=== PATIENT | male | born 1995 | race Caucasian/White ===

== ENCOUNTER 2017-02-11 15:43 | Emergency (ER) | payer OTHER, SELFPAY ==
[2017-02-11] MEDS ORDERED: Ibuprofen 800 MG TAB ONE (16:22)
== END 2017-02-11 16:32 | disposition home or self-care (01) ==
LOC: ERS 15:43
DX: S39.012A Strain of muscle, fascia and tendon of lower back, initial encounter (principal); S29.012A Strain of muscle and tendon of back wall of thorax, initial encounter; F41.9 Anxiety disorder, unspecified; F31.9 Bipolar disorder, unspecified; F43.10 Post-traumatic stress disorder, unspecified; F17.220 Nicotine dependence, chewing tobacco, uncomplicated; V43.52XA Car driver injured in collision with other type car in traffic accident, initial encounter
CPT/HCPCS: 99283

== ENCOUNTER 2017-03-10 19:45 | Emergency (ER) | payer SELFPAY ==
--- NOTE | 2017-03-10 20:16 | RAD ---
RIGHT SHOULDER THREE VIEW 03/10/17 HISTORY: Pain. COMPARISON: None. FINDINGS: No acute fracture. No malalignment. Ribs are unremarkable. IMPRESSION: No acute abnormality. POS: [facility]
== END 2017-03-10 21:35 | disposition home or self-care (01) ==
LOC: ERS 19:45
DX: S46.011A Strain of muscle(s) and tendon(s) of the rotator cuff of right shoulder, initial encounter (principal); F41.9 Anxiety disorder, unspecified; F32.9 Major depressive disorder, single episode, unspecified; F43.10 Post-traumatic stress disorder, unspecified; F17.220 Nicotine dependence, chewing tobacco, uncomplicated; X58.XXXA Exposure to other specified factors, initial encounter

== ENCOUNTER 2019-05-21 20:24 | Emergency (ER) | payer OTHER ==
[2019-05-21 20:51] LABS: #Basophils 0.1 thou/uL (0.0-0.2); #Eosinphils 0.1 thou/uL (0.0-0.7); #Lymphocytes 1.6 thou/uL (1.20-3.40); #Monocytes 0.4 thou/uL (0.11-0.59); #Neutrophils 4.4 thou/uL (1.40-6.50); %Basophils 1.3 % (0.0-1.0); %Eosinophils 2.2 % (0.0-10.0); %Lymphocytes 24.6 % (21.0-51.0); %Monocytes 5.3 % (0.0-10.0); %Neutrophils 66.6 % (42.0-75.0); Hemoglobin 15.7 g/dL (14.0-18.0); Mean Corpuscular HGB CONC 34.5 g/dL (32.0-36.0); Mean Corpuscular Hemoglobin 29.1 pg (27.0-31.0); Mean Corpuscular Volume 84.4 fL (78.0-98.0); Mean Platelet Volume 8.1 fL (7.4-10.4); Platelet Count 244 thou/uL (130-400); RBC Distribution Width 11.8 % (11.5-14.5); White Blood Cell (WBC) Count 6.6 thou/uL (4.8-10.8)
[2019-05-21] MEDS ORDERED: Ketorolac Tromethamine 30 MG/ML VIAL ONE (20:54)
[2019-05-21 20:58] LABS: Bacteria/HPF None Seen HPF (None Seen); Bilirubin Negative (Negative); Blood, Urine 2+ (Negative); Clarity Clear (Clear); Glucose, Urine (Dipstick) Normal (Negative); Leukocyte Negative Leu/uL (Negative); Nitrite Negative (Negative); Protein, Urine (Dipstick) 20 mg/dL (Neg-Trace); RBC/HPF Greater than 50 HPF (0-3); Squamous Epithelial 0-3 HPF (0-3); Urobilinogen Normal mg/dL (Less than 2); WBC/HPF 0-3 HPF (0-3)
[2019-05-21 21:12] LABS: ALT (SGPT) 13 U/L (8-55); AST (SGOT) 13 U/L (5-34); Albumin 4.7 g/dL (3.5-5.0); Alkaline Phosphatase 63 U/L (40-110); Anion Gap 11 mmol/L (10-20); BUN (Urea Nitrogen) 5 mg/dL (8.9-20.6); Bilirubin, Total 0.9 mg/dL (0.2-1.2); Calc. Creatinine Clearance 0 mL/min (70-130); Calcium 9.6 mg/dL (7.8-10.44); Carbon Dioxide 27 mmol/L (22-29); Chloride 105 mmol/L (98-107); Estimated GFR-MDRD 81; Globulin 2.4 g/dL (2.4-3.5); Glucose 95 mg/dL (70-105); Lipase 6 U/L (8-78); Potassium 4.2 mmol/L (3.5-5.1); Protein, Total 7.1 g/dL (6.0-8.3); Sodium 139 mmol/L (136-145)
--- NOTE | 2019-05-21 22:00 | CT ---
CT ABDOMEN AND PELVIS WITHOUT IV CONTRAST: 05/21/19 INDICATIONS: Flank pain with hematuria. FINDINGS: The lung bases are clear. Liver, spleen, pancreas unremarkable. Adrenal glands normal. Mild left hydronephrosis. There is a 3 to 4 mm calculus in the proximal left ureter. Right urinary tract unremarkable. Bowel loops unremarkable. Appendix appears normal. No other acute process. IMPRESSION: 3 to 4 mm calculus proximal left ureter with mild left hydronephrosis. POS: [facility]
== END 2019-05-21 22:11 | disposition home or self-care (01) ==
LOC: ERS 20:24
DX: N13.2 Hydronephrosis with renal and ureteral calculous obstruction (principal); F41.9 Anxiety disorder, unspecified; F32.9 Major depressive disorder, single episode, unspecified; F43.10 Post-traumatic stress disorder, unspecified; F17.220 Nicotine dependence, chewing tobacco, uncomplicated; Z79.899 Other long term (current) drug therapy
CPT/HCPCS: 36415; 74176; 80053; 81003; 81015; 83690; 85025; 96374; J1885

== ENCOUNTER 2019-07-26 17:54 | Emergency (ER) | payer OTHER ==
[2019-07-26 18:28] LABS: #Basophils 0.1 thou/uL (0.0-0.2); #Lymphocytes 1.6 thou/uL (1.20-3.40); #Monocytes 0.6 thou/uL (0.11-0.59); #Neutrophils 8.3 thou/uL (1.40-6.50); %Basophils 0.7 % (0.0-1.0); %Eosinophils 0.4 % (0.0-10.0); %Lymphocytes 14.7 % (21.0-51.0); %Monocytes 5.4 % (0.0-10.0); %Neutrophils 78.8 % (42.0-75.0); Hemoglobin 15.1 g/dL (14.0-18.0); Mean Corpuscular HGB CONC 33.5 g/dL (32.0-36.0); Mean Corpuscular Hemoglobin 28.7 pg (27.0-31.0); Mean Corpuscular Volume 85.8 fL (78.0-98.0); Mean Platelet Volume 8.3 fL (7.4-10.4); Platelet Count 233 thou/uL (130-400); RBC Distribution Width 11.6 % (11.5-14.5); Red Blood Cell (RBC) Count 5.25 mill/uL (4.70-6.10); White Blood Cell (WBC) Count 10.5 thou/uL (4.8-10.8)
[2019-07-26 18:51] LABS: ALT (SGPT) 13 U/L (8-55); AST (SGOT) 18 U/L (5-34); Albumin 4.6 g/dL (3.5-5.0); Alkaline Phosphatase 66 U/L (40-110); Anion Gap 14 mmol/L (10-20); BUN (Urea Nitrogen) 7 mg/dL (8.9-20.6); Bilirubin, Total 0.8 mg/dL (0.2-1.2); Calc. Creatinine Clearance 0 mL/min (70-130); Calcium 9.9 mg/dL (7.8-10.44); Carbon Dioxide 24 mmol/L (22-29); Chloride 104 mmol/L (98-107); Estimated GFR-MDRD 70; Globulin 2.6 g/dL (2.4-3.5); Glucose 111 mg/dL (70-105); Lipase 11 U/L (8-78); Potassium 3.5 mmol/L (3.5-5.1); Protein, Total 7.2 g/dL (6.0-8.3); Sodium 138 mmol/L (136-145)
[2019-07-26] MEDS ORDERED: Ketorolac Tromethamine 30 MG/ML VIAL ONE (19:06)
[2019-07-26] MEDS ORDERED: Ondansetron PF 4 MG/2 ML Vial ONE (19:06)
--- NOTE | 2019-07-26 21:01 | CT ---
CT ABDOMEN AND PELVIS WITHOUT CONTRAST STONE PROTOCOL 07/26/19 HISTORY: Kidney stones. Left flank pain and vomiting. COMPARISON: CT exam 05/21/19. FINDINGS: Lung bases are clear. No pericardial effusion. There is moderate left sided perinephric stranding with mild hydroureteronephrosis due to a partial o bstructing 4 x 3 mm calculus distal left ureter 3 cm from the ureterovesicular junction. No urinary b ladder calculus. No other calculus is seen within the left or right renal collecting systems. No righ t sided hydroureteronephrosis or nephroureterolithiasis. The appendix is visualized and is normal. No dilated loops of large or small bowel. No free intraperi toneal gas or fluid. Noncontrast evaluation of the spleen, pancreas, adrenal glands are unremarkable. IMPRESSION: Partially obstructing left distal ureteral calculus as described. The calculus is likely the same sto ne that was seen on 05/21/2019 exam although has migrated distally 3 cm from the ureterovesicular junc tion. There is also worsening hydronephrosis and perinephric stranding. POS: [facility]
[2019-07-26 21:29] LABS: Bacteria/HPF None Seen HPF (None Seen); Bilirubin Negative (Negative); Blood, Urine 2+ (Negative); Calcium Oxalate Crystals Rare HPF (None Seen); Clarity Clear (Clear); Glucose, Urine (Dipstick) Normal (Negative); Leukocyte Negative Leu/uL (Negative); Nitrite Negative (Negative); Protein, Urine (Dipstick) 10 mg/dL (Neg-Trace); RBC/HPF Greater than 50 HPF (0-3); Squamous Epithelial None Seen HPF (0-3); Urobilinogen Normal mg/dL (Less than 2); WBC/HPF 0-3 HPF (0-3)
== END 2019-07-26 22:49 | disposition home or self-care (01) ==
LOC: ERS 17:54
DX: N13.2 Hydronephrosis with renal and ureteral calculous obstruction (principal); F41.9 Anxiety disorder, unspecified; F32.9 Major depressive disorder, single episode, unspecified; F43.10 Post-traumatic stress disorder, unspecified; F17.220 Nicotine dependence, chewing tobacco, uncomplicated
CPT/HCPCS: 36415; 74176; 80053; 81003; 81015; 83690; 85025; 96361; 96374; 96375; J1885; J2405

== ENCOUNTER 2019-11-07 11:09 | Outpatient (CLI) | payer OTHER ==
--- NOTE | 2019-11-07 11:32 | CT ---
CT Stone Protocol 11/07/2019 12:00 AM HISTORY: Ureteral stone with hydronephrosis. COMPARISON: 07/26/2019 Technique: Multiple contiguous axial CT images are obtained through the abdomen and pelvis without IV contrast. Coronal reformats are provided. FINDINGS: This examination is limited for the evaluation of solid organs and vascular structures due to the lac k of intravenous contrast. Lower Chest: Lung bases are clear. Abdomen: Liver: Grossly normal non-enhanced CT appearance. Gallbladder: Within normal limits for CT imaging. Pancreas: Grossly normal nonenhanced CT appearance. Spleen: Grossly normal nonenhanced CT appearance. Adrenals: Grossly normal nonenhanced CT appearance. Kidneys: No renal calculi are visualized, and there is no evidence of hydronephrosis. Previously seen left hydronephrosis and perinephric stranding on prior exam has resolved. Ureters: No ureteral calculus is seen.. Previously seen distal left ureteral calculus is no longer vi sualized and may be related to interval treatment or passage of the calculus. Pelvis: Urinary bladder: Decompressed but otherwise grossly within normal limits. Reproductive Organs: No pelvic masses. Lymph Nodes: No enlarged lymph nodes. Bowel: Normal caliber. Appendix: The appendix is normal in caliber. Peritoneum: No free fluid, free air, or fluid collection. Retroperitoneum: within normal limits. Vessels: Abdominal aorta is normal in caliber.. Abdominal Wall: within normal limits. Bones: No lytic or sclerotic osseous lesions. IMPRESSION: 1. No renal or ureteral calculi are seen bilaterally. Previously seen distal left ureteral calculus i s no longer visualized, and there has been resolution of the left hydroureteronephrosis.
== END 2019-11-07 11:10 | disposition home or self-care (01) ==
LOC: BICCT 11:09
PROVIDERS: ATTEND Urology
DX: N13.2 Hydronephrosis with renal and ureteral calculous obstruction (principal); N13.30 Unspecified hydronephrosis
CPT/HCPCS: 74176

== ENCOUNTER 2019-12-25 05:02 | Emergency (ER) | payer OTHER ==
[2019-12-25] MEDS ORDERED: Ketorolac Tromethamine 30 MG/ML VIAL ONE (05:32)
--- NOTE | 2019-12-25 08:10 | RAD ---
EXAM: Two views chest PROVIDED CLINICAL HISTORY: Chest pain. Left rib pain with back pain. No history of trauma. COMPARISON: 09/23/2015 FINDINGS: Cardiac silhouette and pulmonary vasculature are within normal limits. The lungs are clear. The osse ous structures have a normal appearance. No interval change from prior study. IMPRESSION: No acute cardiopulmonary process.
== END 2019-12-25 06:15 | disposition home or self-care (01) ==
LOC: ERS 05:02
DX: R07.9 Chest pain, unspecified (principal); F32.9 Major depressive disorder, single episode, unspecified; F41.9 Anxiety disorder, unspecified; F17.220 Nicotine dependence, chewing tobacco, uncomplicated
CPT/HCPCS: 71046; 93005; 96372; J1885